=== PATIENT | male | born 1955 | race Caucasian/White ===

== ENCOUNTER → 2016-07-09 | Outpatient (CLI) | payer MEDICARE ==
[~2016-07-09] MED LIST: AFRIN) (GENASAL15 ML; AMBIEN5 MG; BENADRYL25 MG; CELEXA10 MG; CENTRUM CHEWAB1 EACH; CITALOPRAM HBR10 MG; COUMADIN **IA1 MG; DESYREL50 MG; DURAGESIC 12 M12 MCG; DURAGESIC 75MC75 MCG; LORTAB 10-3251 EACH; LUMIGAN 0.01%2.5 ML; MIRALAX PO527 GM/BOT; MS CONTIN15 MG; NEURONTIN100 MG; NUCYNTA50 MG; XALATAN2.5 ML
[2016-07-09 10:10] LABS: ALBUMIN 3.5 gm/dL (3.5-5.0); ALK PHOS 108 IU/L (33-138); ALT 25 IU/L (12-78); ANION GAP 10.9 (10.0-19.0); AST 23 IU/L (10-40); BLOOD UREA NITROGEN 18 mg/dL (6-24); CHLORIDE 107 mMol/L (96-110); CO2 28 mMol/L (22-32); CREATININE 0.9 mg/dL (0.6-1.3); ESTIMATED GFR (MDRD EQUATION) > 60; POTASSIUM 3.9 mMol/L (3.7-5.1); SODIUM 142 mMol/L (135-145); TOTAL BILIRUBIN 0.3 mg/dL (0.0-1.5); TOTAL PROTEIN 8.5 g/dL (6.0-8.4)
== END | disposition disaster alternative care site (69) ==
LOC: GLAB 09:26 → GRAD 11:00
PROVIDERS: Internal Medicine Hematology & Oncology
DX: C49.21 Malignant neoplasm of connective and soft tissue of right lower limb, including hip (principal); C78.00 Secondary malignant neoplasm of unspecified lung
CPT/HCPCS: Q9967